=== PATIENT | male | born 1980 | race Caucasian/White ===

== ENCOUNTER 2019-10-01 15:39 | Emergency (ER) | payer OTHER, SELFPAY ==
--- NOTE | ~2019-10-01 | XR_ITS ---
EXAMINATION: XR hand RT 2V INDICATION: Right hand pain and swelling TECHNIQUE: Two views of the right hand are obtained. COMPARISON: None available FINDINGS: There is no fracture, dislocation, or subluxation. The bones, soft tissues, and joint space s are normal. IMPRESSION: 1. No acute osseous abnormality. Reviewed, dictated and finalized at location A.
--- NOTE | ~2019-10-01 | XR_ITS ---
EXAMINATION: XR wrist RT 2V INDICATION: Right wrist pain TECHNIQUE: Two views of the right wrist are obtained. COMPARISON: None available FINDINGS: There is a questionable fracture involving the distal carpal row seen only on the lateral v iew. The remaining osseous structures are unremarkable. The joint spaces are maintained. IMPRESSION: 1. Possible fracture involving the distal carpal row seen only on the lateral view. Consider CT for f urther evaluation. Reviewed, dictated and finalized at location A. IMPRESSION: 1. Possible fracture involving the distal carpal row seen only on the lateral v iew. Consider CT for further evaluation.
--- NOTE | ~2019-10-01 | CT_ITS ---
EXAMINATION: CT wrist RT wo con DATE: 10/01/2019 16:44 INDICATION: Right wrist pain TECHNIQUE: Computed tomography (CT) of the right wrist was performed without intravenous contrast. Th e dose-length product (DLP) was 463.90 mGy-cm. Automated exposure control and iterative reconstructio n technique were employed. COMPARISON: None FINDINGS: No fracture is identified. A subtle oblique lucency in the dorsal aspect of the lunate coul d reflect a prior injury. There is no abnormal sclerosis or erosion. The soft tissues are unremarkabl e. IMPRESSION: 1. No acute osseous abnormality. Reviewed, dictated and finalized at location A.
[2019-10-01 16:00] VITALS: BP 116/64; PULSE 106; RESP 16; TEMP 36.8; O2SAT 97
[2019-10-01] MEDS: KETOROLAC (*BKC) 60 MG/2 ML VIAL IM (16:27)
--- NOTE | 2019-10-01 17:12 | ED.UPPEXIN ---
HPI - Extremity Injury (Upper) General Chief Complaint: Extremity Injury, Upper Stated Complaint: swelling,pain in hand Source: patient Mode of arrival: ambulatory Limitations: no limitations History of Present Illness HPI narrative: this is a 39-year-old gentleman presents with right hand swelling with some warmth and tenderness has good range of motion his radial pulse on the right is strong and brisk no numbness or tingling in his hands. Patient has a history of illicit drug use but none currently and none in the the right hand or arm. Patient has no fever or chills, has had for previous fractures of the right hand but nothing current. No fever or chills. complaint: injury to: right, wrist and hand Onset (ago): day(s) Other Extremity Injury: Right: hand ( Red warm and tender) Handedness: right Place: home Severity: mild Severity scale (1-10): 4 Relieving factors: cold therapy and immobilization Exacerbating factors: movement of extremity Associated symptoms: denies other symptoms Related Data Allergies Allergy/AdvReac Type Severity Reaction Status Date / Time No Known Allergies Allergy Verified 10/01/19 16:28 Review of Systems Review of Systems: All systems reviewed & are unremarkable except as noted in HPI and below PMFSH Past Medical History Medical History Patient denies medical problems Exam Const: General: no acute distress and alert Orientation/consciousness: patient oriented x3 HENMT: Head: normal to inspection Eyes: Conjunctivae: conjunctivae normal Pupils: Equal, round and reactive pupils present EOM: EOMs intact bilaterally Neck: Neck: normal visual inspection and no lymphadenopathy Chest: Chest palpation & inspection: normal inspection of the chest Resp: Effort & Inspection: normal respiratory effort Auscultation: clear to auscultation bilaterally GI: GI Palp: Yes Soft to palpation Percussion: Yes normal to percussion Skin: Wounds: wounds noted ( Right hand warm swollen and mildly tender with palpation) Extrem: General: normal to inspection Psych: Mental Status: mental status grossly normal Course Course Emergency Course: after reassessment of patient after receiving pain medication patient is resting comfortably and patient states that pain has considerably been improved. Vital Signs Vital signs: Vital Signs Temperature 36.8 C 10/01/19 16:00 Pulse Rate 106 H 10/01/19 16:00 Respiratory Rate 16 10/01/19 16:00 Blood Pressure 116/64 10/01/19 16:00 Pulse Oximetry 97 10/01/19 16:00 Temperature 36.8 C 10/01/19 16:00 Pulse Rate 106 H 10/01/19 16:00 Respiratory Rate 16 10/01/19 16:00 Blood Pressure 116/64 10/01/19 16:00 Pulse Oximetry 97 10/01/19 16:00 Critical Care Time Critical Care Time Critical Care Time: No Discharge Plan Discharge Clinical Impression: Cellulitis Patient Disposition: Home, Self-Care Condition: Stable Instructions: Antibiotic Form, Cellulitis (ED) Additional Instructions: Take medicine as prescribed and follow-up with primary care physician if symptoms persist or worsen. Prescriptions: New amoxicillin-pot clavulanate [Augmentin] 875-125 mg tablet 1 tablet PO Q12H Qty: 20 RF: 0 tramadol [Ultram] 50 mg tablet 50 mg PO Q6H PRN (Reason: pain) Qty: 20 RF: 0 Follow-up/Referrals: UNKNOWN,DOCTOR [Primary Care Provider] - Time of Disposition: 17:19
[2019-10-01 17:25] VITALS: RESP 16
== END 2019-10-01 17:25 | disposition home or self-care (01) ==
PROVIDERS: Emergency Provider Emergency Medicine
DX: L03.90 Cellulitis, unspecified (principal)
CPT/HCPCS: 73100; 73120; 73200; 96372; 99283; 99284; J1885

== ENCOUNTER 2019-11-11 18:39 | Emergency (ER) | payer OTHER, SELFPAY ==
--- NOTE | ~2019-11-11 | CT_ITS ---
EXAMINATION: CT brain wo con INDICATION: Head injury COMPARISON: None TECHNIQUE: Standard unenhanced head CT. The dose-length product (DLP) was 605.33 mGy-cm. The mA was a djusted according to patient size. Iterative reconstruction technique was employed. FINDINGS: There is no intracranial hemorrhage, acute infarction, or abnormal mass lesion. The ventric les are normal. There is no abnormal mass effect or midline shift. The noriega-white matter differentiat ion is normal. The basal cisterns are patent. The orbits are normal. The paranasal sinuses, mastoids and calvarium are normal. IMPRESSION: 1. No acute intracranial abnormality. Reviewed, dictated and finalized at location A.
--- NOTE | ~2019-11-11 | XR_ITS ---
EXAMINATION: [id number] INDICATION: Chest pain after fall TECHNIQUE: A frontal view of the chest and 3 views of the left ribs were obtained. COMPARISON: None. FINDINGS: Calcified pulmonary nodules are consistent with old granulomatous disease. The lungs are fr ee of acute opacities. There is no pleural effusion or pneumothorax. The cardiomediastinal silhouette is normal. No displaced rib fracture is identified. IMPRESSION: 1. No acute cardiopulmonary abnormality or evidence of displaced rib fracture. Reviewed, dictated and finalized at location A.
[2019-11-11 18:45] VITALS: BP 133/90; PULSE 98; RESP 20; TEMP 36.8; O2SAT 98
--- NOTE | 2019-11-11 18:45 | ED.BACK ---
HPI - Back Pain/Injury General Chief Complaint: Back Pain/Injury Stated Complaint: back pain Time Seen by Provider: 11/11/19 18:45 Source: patient Mode of arrival: ambulatory Limitations: no limitations History of Present Illness HPI Narrative: A 39-year-old man comes in today complaining of left posterior rib pain and back pain, and having had a head injury earlier today. Patient states that he went to kick a football outdoors, slipped and landed on his back and head. This occurred at approximately 10:00 a.m. Did not lose consciousness and he has had no vomiting. He states that he felt nauseated, saw stars after the injury and had a headache for approximately 1 hour after the injury. States he has been drinking ETOH. He denies hematuria. MD elicited complaint: back pain and back injury Pertinent past history: recent trauma Onset (ago): hour(s) (9) Timing: constant Pain scale (0-10): 8 Similar Symptoms Previously: No Quality: sharp Location: left flank Radiation: none Exacerbating factors: movement and deep breaths Context: fall Work related injury: No Related Data Allergies Allergy/AdvReac Type Severity Reaction Status Date / Time No Known Allergies Allergy Verified 10/01/19 16:28 Review of Systems Constitutional: Constitutional: Denies chills, Denies fever(s) and Denies weakness Eyes: Eyes: Denies change in vision and Denies photophobia ENT: Denies dysphagia, Denies nasal congestion and Denies sore throat Cardiovascular: Cardiovascular: Denies chest pain and Denies radiating jaw, neck or arm pain Respiratory: Respiratory: Denies chest congestion, Denies cough and Denies wheezing Comments: Denies hemoptysis. Gastrointestinal: Gastrointestinal: Denies abdominal pain, Denies nausea and Denies vomiting Genitourinary: Genitourinary: Denies hematuria, Denies urinary frequency and Denies urinary incontinence Musculoskeletal: Musculoskeletal: Reports as per HPI, Denies arthralgias and Denies joint swelling Integumentary/Breasts: Skin/Breast: Denies pruritus, Denies erythema and Denies rash Neurologic: Denies vertigo, Denies dizziness and Denies syncope Hematologic/Lymphatic: Hematologic/Lymphatic: Denies easy bleeding and Denies easy bruising Allergic/Immunologic: Allergic/Immunologic: Denies lip swelling and Denies wheezing PMF Past Medical History Medical History (Updated 11/11/19 @ 20:06 by Ismael Henderson MD) Patient denies medical problems Surgical History Surgical History Fatty tumor removed from abdomen Social History Social History Smoking status: Current every day smoker Alcohol intake: current Alcohol use details: daily Substance use: never Living arrangements: with family Exam Const: General: healthy appearing and alert Orientation/consciousness: patient oriented x3 Limitations: no limitations Other: moderate acute distress. HENMT: Head: normal to inspection Ears: external ears normal, TM's normal bilaterally and EAC's normal General nose exam: Normal nares present Mouth: Yes moist mucous membranes Throat: posterior oropharynx normal Other: No scalp wound present. Eyes: Conjunctivae: conjunctivae normal Pupils: Equal, round and reactive pupils present EOM: EOMs intact bilaterally Neck: Neck: normal visual inspection Other: No tenderness. Normal range of motion. Resp: Effort & Inspection: normal respiratory effort and not labored Auscultation: clear to auscultation bilaterally, no rales, no rhonchi and no wheezes Cardio: Rate: regular rate Rhythm: regular rhythm Heart sounds: no murmurs Back/Spine/Pelvis: Other: Tenderness palpation of the left lower posterior ribs. No swelling, abnormal contour, or flail is present. Skin: General skin exam: normal color, no jaundice and no pallor Rashes: no rashes Neuro: General: patient or
[2019-11-11 19:17] LABS: Add Urine Microscopic? YES; Appearance Urine Clear (Clear); Bilirubin Urine Negative (Negative); Blood Urine Negative (Negative); Color Urine Yellow (Yellow); Glucose Urine UA Negative (Negative); Ketones Urine Negative (Negative); Leukocyte Esterase Ur Trace (Negative); Nitrate Urine Negative (Negative); Protein Urine Negative (Negative); Urobilinogen Urine 0.2 mg/dL (0.2-1.0); pH Urine 6.5 (5.0-8.0)
[2019-11-11 19:22] LABS: Bacteria Urine 1+ /hpf; RBC Urine 0-2 /hpf (0-2); Squamous Epithelial Cell Urine Moderate /hpf (Few); WBC Urine 0-3 /hpf (0-3)
[2019-11-11] MEDS: ONDANSETRON INJ 4 MG/2 ML VIAL IV PUSH (19:31)
[2019-11-11] MEDS: MORPHINE SULFATE 2 MG/ML INJ IV PUSH (19:34)
[2019-11-11] MEDS: SODIUM CHLORIDE 0.9% IV 1,000 ML 999 ML IV CONT (19:36)
[2019-11-11 20:10] VITALS: BP 132/79; PULSE 80; RESP 20; TEMP 36.7; O2SAT 98
== END 2019-11-11 20:13 | disposition home or self-care (01) ==
PROVIDERS: Emergency Provider Emergency Medicine
DX: S22.32XA Fracture of one rib, left side, initial encounter for closed fracture (principal); S09.90XA Unspecified injury of head, initial encounter; W01.0XXA Fall on same level from slipping, tripping and stumbling without subsequent striking against object, initial encounter
CPT/HCPCS: 70450; 71101; 81001; 96361; 96374; 96375; 99282; 99284; J2270; J2405; J7030

== ENCOUNTER 2020-01-02 12:26 | Inpatient (IN) | payer OTHER, SELFPAY ==
--- NOTE | ~2020-01-02 | XR_ITS ---
EXAMINATION: XR chest 1V portable INDICATION: Epigastric pain TECHNIQUE: Portable AP chest at 1325 hours COMPARISON: 11/11/2019 FINDINGS: The lungs are free of acute opacities. There is no pleural effusion or pneumothorax. The ca rdiomediastinal silhouette is normal. Scattered calcified pulmonary nodules are consistent with old g ranulomatous disease. IMPRESSION: 1. No acute cardiopulmonary abnormality. Reviewed, dictated and finalized at location A.
[2020-01-02 12:45] VITALS: BP 139/102; PULSE 80; RESP 16; TEMP 36.8; O2SAT 97
--- NOTE | 2020-01-02 12:51 | ECG_ITS ---
Measurements Intervals [place] Rate: 63 P: 54 ID: [id number] QRS: 39 QRSD: 96 T: 56 QT: 370 QTc: 381 Interpretive Statements SINUS RHYTHM RSR' IN V1 OR V2, CONSIDER RIGHT VENTRICULAR HYPERTROPHY OR RIGHT VCD BASELINE ARTIFACT- I, II, AVR, AVL, AVF, V1-V6 BORDERLINE ECG Electronically Signed On 01-04-2020 7:05:24 CDT by Eladio Ram D.O.
--- NOTE | 2020-01-02 12:53 | ED.ABDPAIN ---
HPI - Abdominal Pain General Chief Complaint: Abdominal Pain Stated Complaint: abdomen pain Source: patient Mode of arrival: ambulatory History of Present Illness HPI narrative: Joseph is a 39M with a PMH of tobacco abuse that presented to the ED with abdominal pain. He first had a horrible episode of epigastric pain that radiated to his back last week. He went to the hospital but left before he could be seen. It went away after a few days. However the pain returned yesterday. It is a terrible epigastric pain that radiates to his back. It continues to get worse despite Tylenol, ibuprofen, and TUMS. It is accompanied with a few episodes of NBNB vomiting, nausea and constipation but no diarrhea. No CP, SOB, fevers, chills, or syncope/near-syncope. He smokes 1 ppd. He usualy drinks 2-3 fifths per week. However, last week he was with family with significant stressors and he drank much more than usual and was smoking more. Lastly he reports binge drinking last night. Related Data Home Medications Medication Instructions Recorded Confirmed No Home Medications 11/12/19 01/02/20 Allergies Allergy/AdvReac Type Severity Reaction Status Date / Time No Known Allergies Allergy Verified 11/12/19 14:38 Review of Systems Constitutional: Constitutional: Denies chills, Reports fatigue and Denies fever(s) Eyes: Eyes: Reports no additional eye complaints ENT: Reports system reviewed and no additional complaints, except as documented Cardiovascular: Cardiovascular: Reports no additional cardiovascular complaints Respiratory: Respiratory: Reports no additional respiratory complaints Gastrointestinal: Gastrointestinal: Reports as per HPI Genitourinary: Genitourinary: Reports no additional male genitourinary complaints Musculoskeletal: Musculoskeletal: Reports no additional musculoskeletal complaints Integumentary/Breasts: Skin/Breast: Reports system reviewed and no additional complaints, except as docu Neurologic: Reports system reviewed and no additional complaints, except as documented Psychiatric: Psychiatric: Reports no additional psychiatric complaints Endocrine: Endocrine: Reports no additional endocrine complaints Hematologic/Lymphatic: Hematologic/Lymphatic: Reports no additional hematologic/lymphatic complaints Allergic/Immunologic: Allergic/Immunologic: Reports no additional allergic/immunologic complaints [facility] Past Medical History Medical History Nicotine dependence Surgical History Surgical History Fatty tumor removed from abdomen Social History Social History Smoking status: Current every day smoker Alcohol intake: current Substance use: never Exam Const: General: no acute distress and alert Orientation/consciousness: patient oriented x3 Limitations: No altered mental status HENMT: Other: normocephalic, atraumatic Eyes: Conjunctivae: conjunctivae normal Pupils: Equal, round and reactive pupils present Neck: Neck: normal visual inspection Chest: Chest palpation & inspection: normal inspection of the chest Resp: Effort & Inspection: normal respiratory effort Auscultation: clear to auscultation bilaterally Cardio: Rate: regular rate Rhythm: regular rhythm Heart sounds: no murmurs GI: Other: Diffuse TTP but it was worse in the epigastric region and RUQ. Decreased bowel sounds but they were present. No guarding or rebound tenderness. : Other: No CVA tenderness Skin: General skin exam: normal color Rashes: no rashes Neuro: General: patient oriented x3 and moves all extremities Extrem: General: normal to inspection Psych: Mental Status: mental status grossly normal Course Course Emergency Course: Joseph was seen and evaluated. I ordered labs, CXR, EKG, UA, 1L LR and 4 mg of morphine. EKG showed NSR wi
[2020-01-02] MEDS: MORPHINE SULFATE 4 MG/ML INJ IV PUSH (13:05)
[2020-01-02] MEDS: LACTATED RINGERS 1,000 ML 999 ML IV CONT (13:05)
[2020-01-02 13:16] LABS: Basophils Absolute Auto 0.07 K/mm3 (0.00-0.10); Basophils Percent Auto 0.7 % (0.0-1.0); Eosinophils Absolute Auto 0.18 K/mm3 (0.02-0.50); Eosinophils Percent Auto 1.9 % (1.0-6.0); Hematocrit 48.1 % (40.0-54.0); Hemoglobin 16.7 g/dL (14.0-18.0); Immature Granulocyte Absolute 0.02 K/mm3 (0.00-0.00); Immature Granulocyte Percent A 0.2 % (0.0-0.0); Lymphocytes Absolute Auto 2.79 K/mm3 (1.10-4.50); Lymphocytes Percent Auto 28.7 % (18.0-42.0); Mean Corpuscular HGB Conc 34.7 g/dL (32.0-36.0); Mean Corpuscular Hemoglobin 36.3 pg (27.0-31.0); Mean Corpuscular Volume 104.6 fL (78.0-102.0); Monocytes Absolute Auto 0.88 K/mm3 (0.10-0.90); Monocytes Percent Auto 9.1 % (2.0-11.0); Neutrophils Absolute Auto 5.8 K/mm3 (1.7-7.2); Neutrophils Percent Auto 59.4 % (50.0-70.0); Platelet Count Result 195 K/mm3 (150-420); Red Cell Distribution Width 14.6 % (11.6-14.4); White Blood Count 9.7 K/mm3 (4.8-10.8)
[2020-01-02 13:27] LABS: Prothrombin Time 10.7 Seconds (9.64-11.0)
[2020-01-02 13:35] LABS: BNP 18.3 pg/mL (0-100)
[2020-01-02 13:40] LABS: Alanine Aminotransferase 229 U/L (16-63); Alkaline Phosphatase 113 U/L (46-116); Anion Gap 11 mmol/L (8-16); Aspartate Amino Transferase 204 U/L (15-37); Bilirubin,Total 0.8 mg/dL (0.00-1.00); Blood Urea Nitrogen 5 mg/dL (7-18); Calcium 9.5 mg/dL (8.5-10.1); Carbon Dioxide 28 mmol/L (21-32); Chloride 101 mmol/L (98-108); Estimated Glomerular Filt Rate > 60; Ethanol 92 mg/dL (0-6); Glucose 110 mg/dL (70-99); Osmolality Calculated 288 mOsm/kg (285-295); Potassium 3.6 mmol/L (3.5-5.1); Sodium 140 mmol/L (136-145); Total Protein 8.4 g/dL (6.4-8.2)
[2020-01-02 13:54] LABS: Lipase 11302 U/L (73-393); Troponin I < 0.02 ng/mL (0.00-0.056)
[2020-01-02 14:28] VITALS: RESP 17
[2020-01-02 14:46] VITALS: BMI 27.7
[2020-01-02 15:35] VITALS: BP 144/99; PULSE 68; RESP 16; TEMP 36.8; O2SAT 97
[2020-01-02] MEDS: LACTATED RINGERS 1,000 ML 150 ML IV CONT (16:35)
[2020-01-02] MEDS: MORPHINE SULFATE 2 MG/ML INJ 4 MG IV PUSH (17:01)
[2020-01-02] MEDS: ONDANSETRON INJ 4 MG/2 ML VIAL IV PUSH (17:01)
--- NOTE | 2020-01-02 17:58 | PC.NURSE ---
iv in r ac infiltrated. 3 nurses have attempted iv with no luck. er nurse attempted in foot and it blew. erp aware of no iv line. desirae robledo
--- NOTE | 2020-01-02 18:27 | PC.NURSE ---
floor/er nurses unable to get iv access, will consult pt about IO or possible central line placement
[2020-01-02] MEDS: chlordiazePOXIDE 10 MG CAPSULE PO (18:30)
--- NOTE | 2020-01-02 18:44 | PC.NURSE ---
pt is in with , signing ama paperwork at this time, has decided against an IO or central line placement,
--- NOTE | 2020-01-02 18:50 | PM.IMPN ---
Progress Note: A&P Assessment and Plan (1) Acute alcoholic pancreatitis: Code(s): K85.20 - Alcohol induced acute pancreatitis without necrosis or infection Status: Acute Assessment and Plan: - Joseph left AMA after signing paperwork and stating he new the consequences of not getting treatment. He was instructed to come back to this hospital or any other if he changes his mind. Subjective Date/time seen: 01/02/20 18:50 Joseph's IV stopped working this evening. Despite multiple nurses attempting no peripheral IV could be started. He adamantly refused central line and IO access. After this an attempt was made to insert an IV in his foot as no other access could be made. This failed as well. I again pushed the importance of staying and getting an IO line or central venous access but he refused. I explained that pancreatitis could be deadly, lead to chronic pancreatitis, diabetes, and be extremely painful and he expressed understanding. He then signed out AMA. He voiced understanding that he could return to this hospital or any other at any time. Review of Systems Constitutional: Constitutional: Denies chills and Denies fever(s) Cardiovascular: Cardiovascular: Denies chest pain with activity, Denies syncope, Denies edema and Denies dyspnea on exertion Respiratory: Respiratory: Denies cough and Denies dyspnea on exertion Psychiatric: Psychiatric: Denies behavioral changes and Denies confusion Endocrine: Endocrine: Reports no additional endocrine complaints Hematologic/Lymphatic: Hematologic/Lymphatic: Reports no additional hematologic/lymphatic complaints Allergic/Immunologic: Allergic/Immunologic: Reports no additional allergic/immunologic complaints Exam Const: General: no acute distress HENMT: Other: normocephalic, atraumatic Eyes: Pupils: Equal, round and reactive pupils present EOM: EOMs intact bilaterally Resp: Effort & Inspection: normal respiratory effort Cardio: Rate: regular rate GI: Other: Continues to have TTP Skin: General skin exam: normal color and no rashes or lesions noted Neuro: General: gait normal Cognition (Neuro): normal cognition Speech: normal speech Extrem: General: normal to inspection Psych: Mental Status: mental status grossly normal Affect: Anxious affect present Other: Alert and oriented to person, place, and time as well as why he is in the hospital. He was able to state the consequences of not getting treatment back to me with good understanding. Objective Data Vital Signs Vital Signs: Vital Signs - 24 hr 01/02/20 12:45 01/02/20 14:28 01/02/20 15:35 Temperature 98.2 F 98.2 F Pulse Rate 80 68 Respiratory Rate 16 17 16 Blood Pressure 139/102 H 144/99 H Pulse Oximetry 97 97 Intake/Output Intake/Output: Intake & Output 12/30/19 12/31/19 01/01/20 01/02/20 23:59 23:59 23:59 23:59 Intake Total 1436.667 Balance 1436.667 Meds/Results Medications: Active Medications Generic Name Dose Route Start Last Admin Trade Name Freq PRN Reason Stop Dose Admin Chlordiazepoxide HCl 10 mg 01/02/20 18:00 01/02/20 18:30 Librium Po PO 10 mg Q6HR NEPTALI Administration Enoxaparin Sodium 40 mg 01/03/20 09:00 Lovenox SUB-Q DAILY [facility] Thiamine HCl 100 mg/ Folic 1,013.2 mls @ 100 mls/hr 01/02/20 15:10 01/02/20 18:49 Acid 1 mg/ Multivitamins 10 ml IV CONT 01/03/20 01:17 Infused / Magnesium Sulfate 1 gm/ .Q10H8M ONE Infusion Lactated Ringer's Lactated Ringer's 1,000 mls @ 150 mls/hr 01/02/20 15:15 01/02/20 18:48 Lr - Lactated Ringers Iv IV CONT Infused .Q6H40M NEPTALI Infusion Morphine Sulfate 4 mg 01/02/20 14:03 01/02/20 17:01 Morphine Sulfate Inj IV PUSH 4 mg Q4H PRN Administration Pain Rated 7-10 Nicotine 1 patch 01/03/20 09:00 Nicoderm Cq 21 Mg TRANSDERM QAM [facility] Ondansetron HCl 4 mg 01/02/20 14:03 01/02/20 17:01 Zofran Inj IV PUSH 4 mg Q6H PRN Administration Nausea
== END 2020-01-02 18:40 | disposition left against medical advice (07) | DRG 282 ==
LOC: CHSED 12:28 → CHS2ND 14:26
PROVIDERS: Admitting Provider Family Medicine; Emergency Provider Family Medicine; Visit Provider Family Medicine
DX: K85.20 Alcohol induced acute pancreatitis without necrosis or infection (principal); F17.210 Nicotine dependence, cigarettes, uncomplicated
CPT/HCPCS: 36415; 71045; 80053; 80307; 83605; 83690; 83880; 84484; 85025; 85610; 93005; 96361; 96374; 99284; 99285; A9270; J2270; J2405; J3411; J3475; J7120

== ENCOUNTER 2020-03-05 19:22 | Inpatient (IN) | payer OTHER, SELFPAY ==
--- NOTE | ~2020-03-05 | US_ITS ---
US right upper quadrant DATE: 03/07/2020 09:44 INDICATION: Abdominal pain TECHNIQUE: Real-time imaging of liver, pancreas, gallbladder areas COMPARISON: 03/01/2020 CT abdomen pelvis FINDINGS: There is prominent thickening and edema of the gallbladder wall. Acute cholecystitis. The c ommon bile duct measures 4 mm, within normal limits. Normal hepatopedal portal venous flow direction. No hepatic or pancreatic space-occupying mass lesion is evident. IMPRESSION: Prominent thickening and edema of the gallbladder wall, suggesting acute cholecystitis Reviewed, dictated and finalized at Location A. Reviewed, dictated and finalized at location A.
--- NOTE | ~2020-03-05 | CT_ITS ---
EXAMINATION: CT abdomen pelvis w con EXAM DATE: 03/05/2020 20:56 INDICATION: Epigastric pain. History pancreatitis. Nausea. TECHNIQUE: Spiral CT of the abdomen and pelvis was performed following intravenous injection of 100 m L Omnipaque 350. Axial, coronal and sagittal images were reviewed. The dose-length product (DLP) fo r this examination was 767.57 mGy-cm. The exposure was tailored according to patient size (auto mA e xposure control), and iterative reconstruction (ASIR) was used as additional dose reduction technique . There is no prior study for comparison. FINDINGS: There is extensive fat stranding throughout the root of the mesentery, likely acute pancrea titis. There is a 10 mm hypodensity in the body of the pancreas, most likely small pseudocyst. There is hepatic steatosis. Gallbladder likely has severely edematous wall without calcified cholelithiasis or biliary duct dilation. There is some enhancement of the common bile duct wall, could indicate cho langitis. Recommend follow-up right upper quadrant sonogram. There is a periportal lymph node measuri ng 1.4 x 1.0 cm, and another node or conglomerate of nodes measuring 3.4 x 2.0 cm. Portal and splenic veins are patent. Kidneys enhance symmetrically. There is no hydronephrosis. The prostate is unr emarkable. The bladder is unremarkable. There is no retroperitoneal or pelvic lymphadenopathy. Th ere is mild scattered arteriosclerotic disease. The appendix is normal. The stomach and small bowel are unremarkable. There is expected amount of c olonic stool. No free intraperitoneal gas. The heart is normal in size. There are no pericardial or pleural effusions. Scattered basilar calcified granulomata. There are no osteoblastic or osteol ytic lesions identified. IMPRESSION: 1. Extensive retroperitoneal fat stranding probably acute pancreatitis. Small pseudocyst. 2. Edematous gallbladder wall, could be reactive from pancreatitis. Normal CBD diameter but with enh ancing mucosa, possible cholangitis. Recommend follow-up right upper quadrant sonogram. 3. Periportal lymphadenopathy. 4. Hepatic steatosis. Reviewed, dictated and finalized at location A. IMPRESSION: 1. Extensive retroperitoneal fat stranding probably acute pancreatitis. Small pseudocyst. 2. Edematous gallbladder wall, could be reactive from pancreatitis. Normal CBD diameter but with enhancing mucosa, possible cholangitis. Recommend follow-up right upper quadrant sonogram. 3. Periportal lymphadenopathy. 4. Hepatic steatosis.
[2020-03-05 19:39] VITALS: BP 142/89; PULSE 108; RESP 20; TEMP 36.8; O2SAT 96
[2020-03-05] MEDS: MORPHINE SULFATE (*CRX) 4 MG/ML INJ IV PUSH (19:55)
[2020-03-05] MEDS: ONDANSETRON INJ 4 MG/2 ML VIAL IV PUSH (19:55)
[2020-03-05] MEDS: SODIUM CHLORIDE 0.9% IV 1,000 ML 999 ML IV CONT (19:55)
[2020-03-05 19:59] VITALS: BP 131/96; PULSE 90; RESP 18; O2SAT 96
[2020-03-05 20:09] LABS: Basophils Absolute Auto 0.04 K/mm3 (0.00-0.10); Basophils Percent Auto 0.3 % (0.0-1.0); Eosinophils Absolute Auto 0.06 K/mm3 (0.02-0.50); Eosinophils Percent Auto 0.4 % (1.0-6.0); Hematocrit 52.3 % (40.0-54.0); Hemoglobin 17.6 g/dL (14.0-18.0); Immature Granulocyte Absolute 0.07 K/mm3 (0.00-0.00); Immature Granulocyte Percent A 0.5 % (0.0-0.0); Lymphocytes Absolute Auto 1.35 K/mm3 (1.10-4.50); Mean Corpuscular HGB Conc 33.7 g/dL (32.0-36.0); Mean Corpuscular Hemoglobin 35.3 pg (27.0-31.0); Mean Platelet Volume 9.6 fl (8.7-11.0); Monocytes Absolute Auto 1.09 K/mm3 (0.10-0.90); Monocytes Percent Auto 7.2 % (2.0-11.0); Neutrophils Absolute Auto 12.5 K/mm3 (1.7-7.2); Neutrophils Percent Auto 82.6 % (50.0-70.0); Platelet Count Result 332 K/mm3 (150-420); Red Blood Count 4.98 M/mm3 (4.70-6.10); Red Cell Distribution Width 13.7 % (11.6-14.4); White Blood Count 15.1 K/mm3 (4.8-10.8)
[2020-03-05 20:26] LABS: Alanine Aminotransferase 101 U/L (16-63); Albumin Level 3.7 g/dL (3.4-5.0); Alkaline Phosphatase 87 U/L (46-116); Anion Gap 11 mmol/L (8-16); Aspartate Amino Transferase 60 U/L (15-37); Bilirubin,Total 0.8 mg/dL (0.00-1.00); Blood Urea Nitrogen 11 mg/dL (7-18); Calcium 9.2 mg/dL (8.5-10.1); Carbon Dioxide 26 mmol/L (21-32); Chloride 101 mmol/L (98-108); Estimated CRCL calculation 99 ml/min; Estimated Glomerular Filt Rate > 60; Glucose 127 mg/dL (70-99); Osmolality Calculated 287 mOsm/kg (285-295); Potassium 3.8 mmol/L (3.5-5.1); Sodium 138 mmol/L (136-145); Total Protein 7.6 g/dL (6.4-8.2)
[2020-03-05 20:29] LABS: Lactate Dehydrogenase 164 U/L (85-227); Magnesium 1.8 mg/dL (1.8-2.4)
[2020-03-05 20:35] LABS: Lipase 3545 U/L (73-393)
[2020-03-05 20:54] VITALS: BP 140/90; PULSE 90; RESP 16; O2SAT 98
[2020-03-05] MEDS: HYDROmorphone HCL INJ (*CRX) 2 MG/ML VIAL IV PUSH (20:58)
--- NOTE | 2020-03-05 21:24 | ED.ABDPAIN ---
HPI - Abdominal Pain General Chief Complaint: Abdominal Pain Stated Complaint: pancreas pain History of Present Illness HPI narrative: This is a 39-year-old gentleman with a history of alcohol abuse and history of pancreatitis presents with increased abdominal pain located in the left upper quadrant with no radiation of his pain currently there is some no fever chills with a blood pressure 142/89, has some nausea with no episodes of vomiting no radiation of his pain no chest pain or shortness of breath. Patient has had episodes of pancreatitis in the past, last alcoholic drink was [id number] ago according to patient. Patient is a smoker. MD elicited complaint: abdominal pain Onset (ago): hour(s) Pain Consistency: constant Location: LUQ Severity: severe Quality: aching Radiation: LUQ Migration to: no migration Exacerbating factors: eating and vomiting Relieving factors: nothing Associated symptoms: nausea Related Data Home Medications Medication Instructions Recorded Confirmed No Home Medications 11/12/19 03/05/20 Allergies Allergy/AdvReac Type Severity Reaction Status Date / Time No Known Allergies Allergy Verified 11/12/19 14:38 Review of Systems Review of Systems: All systems reviewed & are unremarkable except as noted in HPI and below PMFSH Past Medical History Medical History (Updated 03/05/20 @ 21:28 by Balbir Delgado MD) Nicotine dependence Surgical History Surgical History Fatty tumor removed from abdomen Social History Social History (Updated 03/05/20 @ 19:51 by Ismael Warner) Smoking packs per day: 1.5 Smoking cigarettes per day: 30.0 Smoking status: Heavy tobacco smoker Tobacco type: cigarettes Second hand tobacco smoke exposure: Yes Alcohol intake: current Substance use: former Substance use type: marijuana and IV drugs Spiritual care concerns: No Exam Const: General: no acute distress Orientation/consciousness: patient oriented x3 HENMT: Head: normal to inspection Eyes: Conjunctivae: conjunctivae normal Pupils: Equal, round and reactive pupils present Neck: Neck: normal visual inspection, no lymphadenopathy and no meningeal signs Chest: Chest palpation & inspection: normal inspection of the chest Resp: Effort & Inspection: normal respiratory effort Auscultation: clear to auscultation bilaterally Cardio: Rate: regular rate and tachycardic GI: GI Palp: Yes Soft to palpation, Yes Guarding due to palpation present (GI) and Yes Rebound tenderness present : Testes: Testes normal Back/Spine/Pelvis: Back: no CVA tenderness Skin: General skin exam: normal color Rashes: no rashes Neuro: General: patient oriented x3, moves all extremities, no meningeal signs and no focal motor deficits Psych: Appearance: grossly normal Mental Status: mental status grossly normal Affect: normal affect Thought content: Yes Normal thought content present Course Course Emergency Course: patient received IV fluids, Zofran and 4 mg IV morphine and reduce his pain level down to a 7/10 and received an additional 2 mg of Dilaudid. Patient advised to be admitted to the hospital for further evaluation and treatment. Vital Signs Vital signs: Vital Signs Temperature 36.8 C 03/05/20 19:39 Pulse Rate 108 H 03/05/20 19:39 Respiratory Rate 20 03/05/20 19:39 Blood Pressure 142/89 H 03/05/20 19:39 Pulse Oximetry 96 03/05/20 19:39 Temperature 36.8 C 03/05/20 19:39 Pulse Rate 90 03/05/20 20:54 Respiratory Rate 16 03/05/20 20:54 Blood Pressure 140/90 03/05/20 20:54 Pulse Oximetry 98 03/05/20 20:54 MDM - Abdominal Pain Lab Data Result diagrams: 03/05/20 20:02 03/05/20 20:02 Labs: Lab Results 03/05/20 03/05/20 03/05/20 Range/Units 20:02 20:02 20:02 WBC 15.1 H (4.8-10.8) K/mm3 RBC 4.98 (4.70-6.10) M/mm3 Hgb 17.6 (14.0-1
[2020-03-05 21:35] VITALS: BP 132/87; PULSE 92; RESP 16; O2SAT 95
[2020-03-05 22:11] VITALS: BP 140/82; PULSE 80; RESP 16; O2SAT 96
[2020-03-05 22:20] VITALS: BP 120/89; PULSE 114; RESP 18; TEMP 36.8; O2SAT 96; BMI 28.3
--- NOTE | 2020-03-05 22:25 | PC.NURSE ---
Abdominal pain, hx of alcohol abuse, has decreased his use lately, pain tonight since 0 this am, no vomiting, pain was sharp and radiated to bilateral sides, hot bath, nothing helped, pain improved while in ED with pain meds and fluids,n ow just a dry mouth and pain 3/10, oriented to room
[2020-03-06 00:12] VITALS: BP 116/81; PULSE 90; RESP 16; TEMP 36.9; O2SAT 94
[2020-03-06] MEDS: HYDROmorphone HCL INJ (*CRX) 2 MG/ML VIAL IV PUSH ×5 (03:06→20:31)
[2020-03-06 03:26] VITALS: BP 120/80; PULSE 92; RESP 16; TEMP 37; O2SAT 96
--- NOTE | 2020-03-06 05:35 | PC.NURSE ---
Rested better after 0306 pain medication. Dozing in between watching TV and using urinal. IV fluids continue as ordered.
[2020-03-06 06:03] LABS: Basophils Absolute Auto 0.05 K/mm3 (0.00-0.10); Basophils Percent Auto 0.3 % (0.0-1.0); Eosinophils Absolute Auto 0.26 K/mm3 (0.02-0.50); Eosinophils Percent Auto 1.8 % (1.0-6.0); Hematocrit 50.5 % (40.0-54.0); Hemoglobin 16.8 g/dL (14.0-18.0); Immature Granulocyte Absolute 0.07 K/mm3 (0.00-0.00); Immature Granulocyte Percent A 0.5 % (0.0-0.0); Lymphocytes Absolute Auto 1.41 K/mm3 (1.10-4.50); Lymphocytes Percent Auto 9.8 % (18.0-42.0); Mean Corpuscular HGB Conc 33.3 g/dL (32.0-36.0); Mean Corpuscular Hemoglobin 35.3 pg (27.0-31.0); Mean Corpuscular Volume 106.1 fL (78.0-102.0); Mean Platelet Volume 9.6 fl (8.7-11.0); Monocytes Absolute Auto 1.13 K/mm3 (0.10-0.90); Monocytes Percent Auto 7.8 % (2.0-11.0); Neutrophils Absolute Auto 11.5 K/mm3 (1.7-7.2); Neutrophils Percent Auto 79.8 % (50.0-70.0); Platelet Count Result 277 K/mm3 (150-420); Red Blood Count 4.76 M/mm3 (4.70-6.10); Red Cell Distribution Width 13.8 % (11.6-14.4); White Blood Count 14.4 K/mm3 (4.8-10.8)
[2020-03-06 06:35] LABS: Alanine Aminotransferase 83 U/L (16-63); Albumin Level 3.4 g/dL (3.4-5.0); Alkaline Phosphatase 76 U/L (46-116); Anion Gap 9 mmol/L (8-16); Aspartate Amino Transferase 46 U/L (15-37); Bilirubin,Total 0.9 mg/dL (0.00-1.00); Blood Urea Nitrogen 9 mg/dL (7-18); Calcium 8.6 mg/dL (8.5-10.1); Carbon Dioxide 28 mmol/L (21-32); Chloride 103 mmol/L (98-108); Estimated CRCL calculation 114 ml/min; Estimated Glomerular Filt Rate > 60; Glucose 119 mg/dL (70-99); Osmolality Calculated 289 mOsm/kg (285-295); Potassium 3.8 mmol/L (3.5-5.1); Sodium 140 mmol/L (136-145); Total Protein 6.6 g/dL (6.4-8.2)
[2020-03-06 06:56] LABS: Lipase 2237 U/L (73-393)
[2020-03-06 07:55] VITALS: BP 126/84; PULSE 96; RESP 18; O2SAT 94
--- NOTE | 2020-03-06 08:27 | PM.IMHP ---
H&P: HPI History of Present Illness Date/Time: 03/06/20 08:27 Chief complaint: pancreas pain Narrative: Joseph Ly is a 39 year old male that presented to the ED today with abdominal pain. PMX nicotine dependence in chronic pancreatitis. According to the patient he has had a pancreatitis 3 times. Patient noted that yesterday he woke up at approximately 3 AM with epigastric pain that radiated to his back. Patient did take Tylenol at home but it did not relieve his pain. Patient noted he presented to the ED because this is the worse his pain has ever gotten. He did know he was able to drink fluids he denies any nausea and vomiting his last drink was the. Previous day at 3 PM. On admission his lipase was 11,302, lactic acid , troponin,WNL. Patient liver enzymes elevated. The patient denies SOB, CP, palpitation, extremity numbness, lightheadedness, dizziness, constipation, diarrhea, chills, or fever. Patient will be admitted for pancreatitis and his elevated liver enzymes. Patient notes she continues to have epigastric pain that is controlled with pain medication he did note that his pain medication did not last long enough so I adjusted the frequency. He also noted that he feels like he is able to drink will start a clear liquid diet. Review of Systems Review of Systems: All systems reviewed & are unremarkable except as noted in HPI and below (10 point system review) [facility] Past Medical History Medical History (Updated 03/06/20 @ 08:58 by RITA Guy) Nicotine dependence Surgical History Surgical History Fatty tumor removed from abdomen Social History Social History (Updated 03/05/20 @ 19:51 by Ismael Warner) Smoking packs per day: 1.5 Smoking cigarettes per day: 30.0 Years smoked: 20 Smoking pack-years: 30.00 Smoking status: Current every day smoker Tobacco type: cigarettes Second hand tobacco smoke exposure: Yes Alcohol intake: current Drinks per week: 28 Substance use: current Substance use type: marijuana Last use: 2 weeks Gender identity (if verbalized by the patient): Male Spiritual care concerns: No Meds Home Medications and Allergies Home Medications Medication Instructions Recorded Confirmed Type No Home Medications 11/12/19 03/05/20 History Allergies Allergy/AdvReac Type Severity Reaction Status Date / Time No Known Allergies Allergy Verified 11/12/19 14:38 Vital Signs Vital Signs - 24 hr 03/05/20 19:39 03/05/20 19:59 03/05/20 20:54 Temperature 98.3 F Pulse Rate 108 H 90 90 Respiratory Rate 20 18 16 Blood Pressure 142/89 H 131/96 H 140/90 Pulse Oximetry 96 96 98 03/05/20 21:35 03/05/20 22:11 03/05/20 22:20 Temperature 98.2 F Pulse Rate 92 80 114 H Respiratory Rate 16 16 18 Blood Pressure 132/87 140/82 120/89 Pulse Oximetry 95 96 96 03/06/20 00:12 03/06/20 03:26 03/06/20 07:55 Temperature 98.4 F 98.6 F Pulse Rate 90 92 96 Respiratory Rate 16 16 18 Blood Pressure 116/81 120/80 126/84 Pulse Oximetry 94 96 94 Exam Narrative: Exam Narrative: GENERAL: This is a well-nourished, well-developed patient, in no apparent distress. HEAD: normocephalic, atraumatic. EYES: PERRL. Sclera clear/white. Vision is grossly intact. EARS: External ears normal, auditory canals clear and without drainage, TMs normal without perforation. Hearing grossly intact. NOSE: External nose normal with no obvious nasal discharge, nares without redness, no rhinorrhea. THROAT: Mucous membranes moist, posterior pharynx clear. NECK: Neck supple, non-tender without lymphadenopathy, masses or thyromegaly. CARDIOVASCULAR: Regular rate and rhythm without murmurs, gallops, or rubs. RESPIRATORY: Clear to auscultation. Breath sounds equal bilaterally. No wheezes, rales, or rhonchi. GASTROINTESTINAL: Abdomen soft, epigastric tenderness SKIN: warm, intact with no suspicious lesions or rash, good
--- NOTE | 2020-03-06 08:50 | PC.NURSE ---
Dilaudid given for abd pain, no vomiting, no nausea, fluids continue to infuse, given water to drink, NPO status change to clear liquid
[2020-03-06] MEDS: NICOTINE (*PBKC) 21 MG PATCH 1 PATCH TRANSDERM (08:54)
[2020-03-06] MEDS: SODIUM CHLORIDE 0.9% IV 1,000 ML 100 ML IV CONT ×2 (09:34→19:06)
--- NOTE | 2020-03-06 09:40 | PC.NURSE ---
tolerated apple juice, no increase in pain, no n/v
--- NOTE | 2020-03-06 11:00 | PC.NURSE ---
fluids infusing, denies needs, pain better at this time
--- NOTE | 2020-03-06 11:09 | PC.NURSE ---
Tolerating liquids, no vomiting
[2020-03-06 15:20] VITALS: BP 117/83; PULSE 110; RESP 18; TEMP 37.2; O2SAT 97
--- NOTE | 2020-03-06 16:32 | PC.NURSE ---
No n/v, tolerating clear liquids, does have some lingering pain at times, dilaudid given for pain of 7/10
--- NOTE | 2020-03-06 18:20 | PC.NURSE ---
Resting in bed, fluids infusing, pain better since pain med given, no n/v, tolerating clear liquids
[2020-03-06] MEDS: traZODone HCL 50 MG TABLET 100 MG PO (20:32)
[2020-03-07] VITALS: BP 118/84; PULSE 108; RESP 18; TEMP 37.3; O2SAT 94
[2020-03-07] MEDS: HYDROmorphone HCL INJ (*CRX) 2 MG/ML VIAL IV PUSH ×2 (00:46→04:56)
[2020-03-07] MEDS: SODIUM CHLORIDE 0.9% IV 1,000 ML 100 ML IV CONT (04:57)
[2020-03-07 05:44] LABS: Hematocrit 47.8 % (40.0-54.0); Hemoglobin 15.7 g/dL (14.0-18.0); Mean Corpuscular HGB Conc 32.8 g/dL (32.0-36.0); Mean Corpuscular Hemoglobin 35.2 pg (27.0-31.0); Mean Corpuscular Volume 107.2 fL (78.0-102.0); Mean Platelet Volume 9.8 fl (8.7-11.0); Platelet Count Result 211 K/mm3 (150-420); Red Blood Count 4.46 M/mm3 (4.70-6.10); Red Cell Distribution Width 13.9 % (11.6-14.4); White Blood Count 13.6 K/mm3 (4.8-10.8)
[2020-03-07 06:05] LABS: Alanine Aminotransferase 54 U/L (16-63); Albumin Level 2.8 g/dL (3.4-5.0); Alkaline Phosphatase 73 U/L (46-116); Anion Gap 10 mmol/L (8-16); Aspartate Amino Transferase 26 U/L (15-37); Bilirubin,Total 1.2 mg/dL (0.00-1.00); Blood Urea Nitrogen 8 mg/dL (7-18); Calcium 7.8 mg/dL (8.5-10.1); Carbon Dioxide 26 mmol/L (21-32); Chloride 102 mmol/L (98-108); Estimated CRCL calculation 117 ml/min; Estimated Glomerular Filt Rate > 60; Glucose 97 mg/dL (70-99); Lipase 583 U/L (73-393); Osmolality Calculated 284 mOsm/kg (285-295); Potassium 3.6 mmol/L (3.5-5.1); Sodium 138 mmol/L (136-145)
[2020-03-07 08:00] VITALS: BP 115/83; PULSE 95; RESP 18; TEMP 36.9; O2SAT 92
--- NOTE | 2020-03-07 08:55 | PM.DS ---
DS: Admitting Diagnosis Admitting Diagnosis Admitting Diagnosis: ACUTE PANCREATITS DS: Discharge Diagnosis Discharge Diagnosis (1) Acute alcoholic pancreatitis: Qualifiers: Acute pancreatitis complication: no infection or necrosis Qualified Code(s): K85.20 - Alcohol induced acute pancreatitis without necrosis or infection Code(s): K85.20 - Alcohol induced acute pancreatitis without necrosis or infection Status: Acute Assessment and Plan: Secondary to alcohol abuse Chronic patient has been hospitalized x3 There is extensive fat stranding throughout the root of the mesentery, likely acute pancreatitis. There is a 10 mm hypodensity in the body of the pancreas, most likely small pseudocyst. 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 Status: Acute Assessment and Plan: Edematous gallbladder wall, Probably secondary to chronic pancreatitis Ultrasound completed and pending (4) Periportal lymphadenopathy: Code(s): R59.9 - Enlarged lymph nodes, unspecified Status: Acute Assessment and Plan: CT indicates periportal lymph node measuring 1.4 x 1.0 cm, and another node or conglomerate of nodes measuring 3.4 x 2.0 cm Ultrasound completed and pending (5) Alcohol dependence: Code(s): F10.20 - Alcohol dependence, uncomplicated Status: Acute Assessment and Plan: Educated on cessation Continue banana bag Alcohol on admission 97 DS: Summary Time Spent with Patient Time attestation: Total time spent providing and/or coordinating discharge services:60 Exam Narrative: Exam Narrative: GENERAL: This is a well-nourished, well-developed patient, in no apparent distress. HEAD: normocephalic, atraumatic. EYES: PERRL. Sclera clear/white. Vision is grossly intact. EARS: External ears normal, auditory canals clear and without drainage, TMs normal without perforation. Hearing grossly intact. NOSE: External nose normal with no obvious nasal discharge, nares without redness, no rhinorrhea. THROAT: Mucous membranes moist, posterior pharynx clear. NECK: Neck supple, non-tender without lymphadenopathy, masses or thyromegaly. CARDIOVASCULAR: Regular rate and rhythm without murmurs, gallops, or rubs. RESPIRATORY: Clear to auscultation. Breath sounds equal bilaterally. No wheezes, rales, or rhonchi. GASTROINTESTINAL: Abdomen soft, epigastric tenderness SKIN: warm, intact with no suspicious lesions or rash, good texture and turgor. NEURO: awake, alert, and oriented to person, place and time. There were no obvious focal neurologic abnormalities. Steady gait EXTREMITIES: Normal range of motion. No edema. No calf tenderness. Negative Homans sign bilaterally. BACK: Nontender without deformity or crepitance. No flank tenderness. DS: Data Data Completed and Pending Labs on day of discharge: Labs from last 24 hours 03/07/20 03/07/20 05:27 05:27 WBC 13.6 H RBC 4.46 L Hgb 15.7 Hct 47.8 MCV 107.2 H MCH 35.2 H MCHC 32.8 RDW 13.9 Plt Count 211 MPV 9.8 Sodium 138 Potassium 3.6 Chloride 102 Carbon Dioxide 26 Anion Gap 10 BUN 8 Creatinine 0.87 Estim Creat Clear Calc 117 Estimated GFR > 60 Glucose 97 Calculated Osmolality 284 L Calcium 7.8 L Total Bilirubin 1.2 H AST 26 ALT 54 Alkaline Phosphatase 73 Total Protein 6.0 L Albumin 2.8 L Lipase 583 H Discharge Plan Discharge Attending physician on discharge: Balbir Delgado Discharging Clinician: Everton Felix
[2020-03-07] MEDS: HYDROcodone/acetaminophen (*CRX) 10-325 MG TABLET 1 TAB PO (09:38)
--- NOTE | 2020-03-11 13:50 | PC.NURSE ---
Pt states he understood all of his instructions and stated It was good .
== END 2020-03-07 11:45 | disposition home or self-care (01) | DRG 282 ==
LOC: CHSED 21:29 → CHS2ND 21:42
PROVIDERS: Nurse Practitioner; Admitting Provider Emergency Medicine; Emergency Provider Emergency Medicine; Visit Provider Emergency Medicine
DX: F10.10 Alcohol abuse, uncomplicated (principal); K85.20 Alcohol induced acute pancreatitis without necrosis or infection; F17.210 Nicotine dependence, cigarettes, uncomplicated; R59.9 Enlarged lymph nodes, unspecified; F10.20 Alcohol dependence, uncomplicated
CPT/HCPCS: 36415; 74177; 76705; 80053; 83615; 83690; 83735; 85025; 85027; 96361; 96374; 96375; 99285; A9270; J1170; J2270; J2405; J2543; J3411; J3475; J7030; J7121; Q9965